=== PATIENT | female | born 1985 | race Hispanic/Latino ===

== ENCOUNTER 2017-05-31 04:19 | Emergency (ER) | payer BC ==
[2017-05-31] MEDS ORDERED: Ibuprofen 800 MG TAB ONE (04:27)
== END 2017-05-31 04:43 | disposition home or self-care (01) ==
LOC: SCSER 04:19
DX: J11.1 Influenza due to unidentified influenza virus with other respiratory manifestations (principal); F17.210 Nicotine dependence, cigarettes, uncomplicated
CPT/HCPCS: 99283

== ENCOUNTER 2024-03-21 07:25 | Outpatient (CLI) | payer BC | END 2024-03-21 07:26 | disposition home or self-care (01) | LOC: BICULT 07:25 | PROVIDERS: ATTEND Nurse Practitioner Family | DX: M79.89 Other specified soft tissue disorders (principal) | CPT/HCPCS: 76999 ==